=== PATIENT | male | born 1950 | race African-American/Black ===

== ENCOUNTER → 2016-07-31 | Outpatient (CLI) | payer MEDICARE, MEDICAID ==
[~2016-07-31] MED LIST: BENA20TA4 PO; CLOP75TA41 PO; CYANOCOBALAMIN (B-12) 1000 MCG/1 ML VIAL IM ONE; CYANOCOBALAMIN (B-12) 1000 MCG/1 ML VIAL ONE; GLIP-116 PO; METO-159 PO; NOR10T PO; SIMV-13 PO; WARF6TAB21 PO
[2016-07-31 10:15] VITALS: BP 126/80
[2016-07-31 12:10] LABS: Basophils # (auto) 0 uL; Basophils % (auto) 0.4 % (0.0-2.0); DEFINITIVE VIEW TRANSMISSION; Eosinophils # (auto) 0.1 uL; Eosinophils % (auto) 1.1 % (0.0-7.0); Hematocrit 30.8 % (41.0-53.0); Hemoglobin 9.6 g/dL (13.5-17.5); Lymphocytes # (auto) 0.9 uL; Lymphocytes % (auto) 12.1 % (10.0-50.0); Mean Corpuscular Hemoglobin 21.3 pg (28.0-32.0); Mean Corpuscular Hgb Conc. 31.1 g/dL (32.0-36.0); Mean Corpuscular Volume 68.4 fL (80.0-100.0); Monocytes # (auto) 0.6 uL; Monocytes % (auto) 8.1 % (0.0-12.0); Neutrophils # (auto) 5.9 uL; Neutrophils % (auto) 78.3 % (37.0-80.0); Platelet Count (auto) 243 10^3/uL (140-450); SUSPECT VIEW TRANSMISSION; White Blood Cell 7.5 10^3/uL (4.4-10.8)
[2016-07-31 12:39] LABS: Red Cell Distribution Width 20.4 % (11.6-16.0)
[2016-07-31 13:26] LABS: Platelet Estimate Adequate
[2016-07-31 13:27] LABS: Anisocytosis Moderate
[2016-07-31 13:28] LABS: Hypochromia Moderate; Schistocytes FEW
[2016-07-31 13:40] LABS: Albumin 3.7 g/dL (3.4-5.0); BUN/Creatinine Ratio 18.3; Bilirubin, Total 0.4 mg/dL (0.2-1.0); Calcium 8.7 mg/dL (8.5-10.1); Magnesium 2.4 mg/dL (1.6-2.6); Total Protein 7.5 g/dL (6.4-8.2)
== END | disposition home or self-care (01) ==
LOC: CHF HDHVI 09:34
PROVIDERS: ATTEND Internal Medicine Cardiovascular Disease
DX: I10 Essential (primary) hypertension (principal); E11.9 Type 2 diabetes mellitus without complications; E83.40 Disorders of magnesium metabolism, unspecified; D64.9 Anemia, unspecified
CPT/HCPCS: 36415; 80053; 83036; 83735; 85025; 93701; 96372; G0463

== ENCOUNTER → 2016-08-07 | Outpatient (CLI) | payer MEDICARE, MEDICAID ==
[2016-08-07 11:55] VITALS: BP 105/70
[2016-08-07 13:26] LABS: INR 2.5 (0.7-1.3)
== END | disposition home or self-care (01) ==
LOC: CHF HDHVI 11:10
PROVIDERS: ATTEND Internal Medicine Cardiovascular Disease
DX: I11.0 Hypertensive heart disease with heart failure (principal); I50.9 Heart failure, unspecified; E11.9 Type 2 diabetes mellitus without complications; D64.9 Anemia, unspecified
CPT/HCPCS: 85610; 96372; G0463; J3420

== ENCOUNTER → 2016-08-22 | Outpatient (CLI) | payer MEDICARE, MEDICAID ==
[~2016-08-22] VITALS: Ht 33 cm; Wt 0.5 kg
[2016-08-22 12:55] VITALS: BP 109/59
[2016-08-22 13:45] VITALS: BP 115/63
[2016-08-22 15:53] LABS: INR 2.7 (0.7-1.3); Prothrombin Time 32.1 sec (9.0-12.0)
[2016-08-22 17:00] LABS: Potassium 4.3 mmol/L (3.5-5.1)
[2016-08-22 17:05] LABS: Basophils # (auto) 0 uL; Basophils % (auto) 0.1 % (0.0-2.0); DEFINITIVE VIEW TRANSMISSION; Eosinophils # (auto) 0.1 uL; Eosinophils % (auto) 0.9 % (0.0-7.0); Hematocrit 32.6 % (41.0-53.0); Hemoglobin 10.1 g/dL (13.5-17.5); Lymphocytes # (auto) 1.5 uL; Lymphocytes % (auto) 16.9 % (10.0-50.0); Mean Corpuscular Hemoglobin 21.6 pg (28.0-32.0); Mean Corpuscular Hgb Conc. 31.2 g/dL (32.0-36.0); Mean Corpuscular Volume 69.3 fL (80.0-100.0); Mean Platelet Volume 10.6 fL (7.4-10.4); Monocytes # (auto) 0.9 uL; Monocytes % (auto) 10.1 % (0.0-12.0); Neutrophils # (auto) 6.4 uL; Platelet Count (auto) 242 10^3/uL (140-450); White Blood Cell 8.8 10^3/uL (4.4-10.8)
[2016-08-22 17:16] LABS: Red Cell Distribution Width 20.7 % (11.6-16.0)
[2016-08-22 18:07] LABS: Anisocytosis Moderate; Hypochromia Moderate; Platelet Estimate Adequate
[2016-08-22 18:08] LABS: Microcytosis Slight
== END | disposition home or self-care (01) ==
LOC: CHF HDHVI 12:59
PROVIDERS: ATTEND Internal Medicine Cardiovascular Disease
DX: I50.9 Heart failure, unspecified (principal); I10 Essential (primary) hypertension; D64.9 Anemia, unspecified; R94.4 Abnormal results of kidney function studies; E55.9 Vitamin D deficiency, unspecified
CPT/HCPCS: 36415; 82306; 82565; 82962; 84132; 84520; 85025; 85610; 96372; G0463

== ENCOUNTER → 2016-09-27 | Outpatient (CLI) | payer MEDICARE, MEDICAID ==
[2016-09-27 14:35] VITALS: BP 135/73
[2016-09-27 14:57] LABS: INR 1.1 (0.7-1.3); Prothrombin Time 13.6 sec (9.0-12.0)
[2016-09-27 15:25] VITALS: BP 128/82
== END | disposition home or self-care (01) ==
LOC: CHF HDHVI 14:38
PROVIDERS: ATTEND Internal Medicine Cardiovascular Disease
DX: I11.0 Hypertensive heart disease with heart failure (principal); I25.10 Atherosclerotic heart disease of native coronary artery without angina pectoris; I73.9 Peripheral vascular disease, unspecified; E11.9 Type 2 diabetes mellitus without complications; D51.9 Vitamin B12 deficiency anemia, unspecified; E78.5 Hyperlipidemia, unspecified; E55.9 Vitamin D deficiency, unspecified; Z95.1 Presence of aortocoronary bypass graft
CPT/HCPCS: 85610; 96372; G0463; J3420

== ENCOUNTER → 2018-04-03 | Outpatient (CLI) | payer MEDICARE, MEDICAID ==
[~2018-04-03] VITALS: Ht 185.4 cm; Wt 89.8 kg
[~2018-04-03] MED LIST changes: +ADENOSINE 75 MG in GIVE UN-DILUTED 0 ML IV ONE; +ADENOSINE 90 MG/30 ML INJ IV ONE; +BENA20TA14 PO; -BENA20TA4 PO; -CYANOCOBALAMIN (B-12) 1000 MCG/1 ML VIAL IM ONE; -CYANOCOBALAMIN (B-12) 1000 MCG/1 ML VIAL ONE
== END | disposition home or self-care (01) ==
LOC: Rad HDHVI 09:41
PROVIDERS: ATTEND Internal Medicine Cardiovascular Disease
DX: I42.0 Dilated cardiomyopathy (principal); I11.0 Hypertensive heart disease with heart failure; I50.23 Acute on chronic systolic (congestive) heart failure; E78.00 Pure hypercholesterolemia, unspecified; E11.9 Type 2 diabetes mellitus without complications; R19.09 Other intra-abdominal and pelvic swelling, mass and lump
CPT/HCPCS: 78452; 93005; 96374; 96375; A9500; J0153

== ENCOUNTER → 2018-04-04 | Outpatient (CLI) | payer MEDICARE, MEDICAID ==
[~2018-04-04] MED LIST changes: -ADENOSINE 75 MG in GIVE UN-DILUTED 0 ML IV ONE; -ADENOSINE 90 MG/30 ML INJ IV ONE
== END | disposition home or self-care (01) ==
LOC: Rad HDHVI 16:04
PROVIDERS: ATTEND Internal Medicine Cardiovascular Disease
DX: I42.0 Dilated cardiomyopathy (principal); I13.0 Hypertensive heart and chronic kidney disease with heart failure and stage 1 through stage 4 chronic kidney disease, or unspecified chronic kidney disease; E11.22 Type 2 diabetes mellitus with diabetic chronic kidney disease; I50.23 Acute on chronic systolic (congestive) heart failure; N18.2 Chronic kidney disease, stage 2 (mild)
CPT/HCPCS: 93306

== ENCOUNTER → 2018-04-07 | Outpatient (CLI) | payer MEDICARE, MEDICAID ==
[2018-04-07 16:17] LABS: Basophils # (auto) 0 uL; Basophils % (auto) 0.5 % (0.0-2.0); Eosinophils # (auto) 0.1 uL; Eosinophils % (auto) 1.6 % (0.0-7.0); Hemoglobin 11.4 g/dL (13.5-17.5); Lymphocytes # (auto) 1.6 uL; Monocytes # (auto) 0.7 uL; Nucleated Red Blood Cells % 0.4 %
[2018-04-07 16:21] LABS: Hematocrit 35.5 % (41.0-53.0); Lymphocytes % (auto) 23.4 % (10.0-50.0); Mean Corpuscular Hemoglobin 26.3 pg (28.0-32.0); Mean Corpuscular Hgb Conc. 32.1 g/dL (32.0-36.0); Mean Corpuscular Volume 81.9 fL (80.0-100.0); Neutrophils # (auto) 4.5 uL; Neutrophils % (auto) 64.5 % (37.0-80.0); Platelet Count (auto) 98 10^3/uL (140-450); Red Blood Cells 4.33 10^6/uL (4.5-5.90)
[2018-04-07 16:32] LABS: Partial Thromboplastin Time 26.5 sec (23.78-33.04); Potassium 3.6 mmol/L (3.5-5.1); Prothrombin Time 10.7 sec (9.27-12.13)
[2018-04-07 16:33] LABS: Red Cell Distribution Width 27.3 % (11.8-14.3)
[2018-04-07 16:37] LABS: BUN/Creatinine Ratio 25.9; Calcium 8.6 mg/dL (8.5-10.1)
== END | disposition home or self-care (01) ==
LOC: Rad HDHVI 12:03
PROVIDERS: ATTEND Internal Medicine Cardiovascular Disease
DX: Z01.818 Encounter for other preprocedural examination (principal); R06.02 Shortness of breath; D64.9 Anemia, unspecified; R79.1 Abnormal coagulation profile; I10 Essential (primary) hypertension
CPT/HCPCS: 36415; 71046; 80048; 85025; 85610; 85730

== ENCOUNTER → 2018-04-10 | Outpatient (CLI) | payer MEDICARE, MEDICAID ==
[2018-04-10 12:10] LABS: Urine Blood Negative /uL (Negative); Urine Specific Gravity 1.023 (1.001-1.035)
== END | disposition home or self-care (01) ==
LOC: LAB 07:54
PROVIDERS: ATTEND Internal Medicine Cardiovascular Disease
DX: N39.0 Urinary tract infection, site not specified (principal)
CPT/HCPCS: 81003; 87086

== ENCOUNTER → 2019-01-12 | Outpatient (CLI) | payer MEDICARE, MEDICAID ==
[~2019-01-12] MED LIST changes: -GLIP-116 PO; +GLIP10TA9 PO
--- NOTE | 2019-01-12 13:50 | NUR ---
CHF PT ARRIVED TO THE CHF CLINIC TO RESUME CHF FOLLOW UP CARE. NOT SEEN SINCE 2017 . PT A/O X 3 VSS, WOUND VAC TO THE LEFT FOOT CHRONIC DM ULCER.
[2019-01-12 14:42] VITALS: BP 121/70
--- NOTE | 2019-01-12 14:42 | NUR ---
Discharge Instructions See e-MAR for any mediations given with this visit. Patient education given on disease process. Patient verbalized understanding. Previous labs reviewed. Patient discharged in stable condition with after care instructions and follow up appointment. CARDIODYNAMIC AND CHEST XRAY COMPLETE Addendum: 01/12/19 at 1708 by J CARLOS OTT RN RN [place] FOLLOW UP IN 1 WEEK
[2019-01-12 15:52] LABS: Basophils # (auto) 0 uL; Eosinophils # (auto) 0.1 uL; Neutrophils # (auto) 3.1 uL; Platelet Count (auto) 169 10^3/uL (140-450)
[2019-01-12 15:55] LABS: Basophils % (auto) 0.4 % (0.0-2.0); Eosinophils % (auto) 1.9 % (0.0-7.0); Hemoglobin 9.2 g/dL (13.5-17.5); Lymphocytes # (auto) 1.6 uL; Lymphocytes % (auto) 30.4 % (10.0-50.0); Mean Corpuscular Hemoglobin 24.7 pg (28.0-32.0); Mean Corpuscular Hgb Conc. 30.5 g/dL (32.0-36.0); Monocytes # (auto) 0.5 uL; Monocytes % (auto) 9.4 % (0.0-12.0); Neutrophils % (auto) 57.9 % (37.0-80.0); Nucleated Red Blood Cells % 0.2 %; White Blood Cell 5.4 10^3/uL (4.4-10.8)
[2019-01-12 16:03] LABS: BUN/Creatinine Ratio 19.7; Calcium 8.3 mg/dL (8.5-10.1); Magnesium 2.3 mg/dL (1.6-2.6); Potassium 3.7 mmol/L (3.5-5.1)
[2019-01-12 16:12] LABS: Red Cell Distribution Width 32.2 % (11.8-14.3)
== END | disposition home or self-care (01) ==
LOC: CHF HDHVI 13:52
PROVIDERS: ATTEND Internal Medicine Cardiovascular Disease
DX: I11.0 Hypertensive heart disease with heart failure (principal); I50.9 Heart failure, unspecified; E83.40 Disorders of magnesium metabolism, unspecified; D64.9 Anemia, unspecified
CPT/HCPCS: 36415; 71046; 80048; 83735; 83880; 85025; 93701; G0463

== ENCOUNTER → 2019-01-21 | Outpatient (CLI) | payer MEDICARE, MEDICAID | END | disposition home or self-care (01) | LOC: Rad HDHVI 09:48 | PROVIDERS: ATTEND Internal Medicine Cardiovascular Disease | DX: I70.201 Unspecified atherosclerosis of native arteries of extremities, right leg (principal); R10.9 Unspecified abdominal pain | CPT/HCPCS: 93926 ==

== ENCOUNTER → 2019-01-30 | Outpatient (CLI) | payer MEDICARE, MEDICAID ==
[~2019-01-30] VITALS: Ht 185.4 cm; Wt 87.5 kg
[~2019-01-30] MED LIST changes: +ADENOSINE 74 MG in GIVE UN-DILUTED 0 ML IV ONE; +ADENOSINE 90 MG/30 ML INJ IV ONE
== END | disposition home or self-care (01) ==
LOC: Rad HDHVI 08:13
PROVIDERS: ATTEND Internal Medicine Cardiovascular Disease
DX: R07.9 Chest pain, unspecified (principal); I11.0 Hypertensive heart disease with heart failure; I50.9 Heart failure, unspecified; I21.9 Acute myocardial infarction, unspecified; E78.00 Pure hypercholesterolemia, unspecified; I25.10 Atherosclerotic heart disease of native coronary artery without angina pectoris; F17.200 Nicotine dependence, unspecified, uncomplicated; Z95.1 Presence of aortocoronary bypass graft
CPT/HCPCS: 78452; 93005; 96374; 96375; A9500; J0153

== ENCOUNTER → 2019-02-02 | Outpatient (CLI) | payer MEDICARE, MEDICAID ==
[~2019-02-02] MED LIST changes: -ADENOSINE 74 MG in GIVE UN-DILUTED 0 ML IV ONE; -ADENOSINE 90 MG/30 ML INJ IV ONE
[2019-02-02 12:30] VITALS: BP 137/54
[2019-02-02 13:00] VITALS: BP 124/64
--- NOTE | 2019-02-02 13:00 | NUR ---
IN FOR CHF FOLLOWUP WITH IN ATTENDANCE. VS WNL. REVIEWED LABS AND STATUS. WRITTEN AND VERBAL INSTRUCTION ON ADDING HIGH POTASSIUM FOODS TO DIET. VERBAL INSTRUCTION AND DEMONSTRATION ON ADDING VITAMIN D SPRAY TO DAILY REGIMEN. REPEAT BACK INSTRUCTIONS OBTAINED. INR CHECKED DUE TO PATIENTS STATING ON BLOOD THINNERS. DISCHARGED TO SELF CARE IN NO DISTRESS WITH IN ATTENDANCE.
== END | disposition home or self-care (01) ==
LOC: CHF HDHVI 13:07
PROVIDERS: ATTEND Internal Medicine Cardiovascular Disease
DX: I13.0 Hypertensive heart and chronic kidney disease with heart failure and stage 1 through stage 4 chronic kidney disease, or unspecified chronic kidney disease (principal); E11.22 Type 2 diabetes mellitus with diabetic chronic kidney disease; I50.9 Heart failure, unspecified; N18.9 Chronic kidney disease, unspecified; E55.9 Vitamin D deficiency, unspecified; L97.509 Non-pressure chronic ulcer of other part of unspecified foot with unspecified severity; R03.0 Elevated blood-pressure reading, without diagnosis of hypertension
CPT/HCPCS: 85610; G0463

== ENCOUNTER → 2019-03-04 | Outpatient (CLI) | payer MEDICARE, MEDICAID ==
[~2019-03-04] MED LIST changes: +CYANOCOBALAMIN (B-12) 1000 MCG/1 ML VIAL IM ONE; +CYANOCOBALAMIN (B-12) 1000 MCG/1 ML VIAL ONE
[2019-03-04 12:59] VITALS: BP 107/71
[2019-03-04 13:35] VITALS: BP 127/66
--- NOTE | 2019-03-04 13:35 | NUR ---
IN TO CLINIC WITH FAMILY IN ATTENDANCE. LABS REVIEWED. ADDITIONAL LABS DRAWN AND SENT. ADMINISTERED MEDICATION PER ORDER. MEDICATION ADMINISTRATION VIT B12 1000 MCG IM TO LEFT DELTOID AT 1335
[2019-03-04 16:12] LABS: Albumin 3.7 g/dL (3.4-5.0); Calcium 8.6 mg/dL (8.5-10.1); Magnesium 2.3 mg/dL (1.6-2.6); Potassium 3.6 mmol/L (3.5-5.1)
[2019-03-04 16:13] LABS: Basophils # (auto) 0 uL; Basophils % (auto) 0.3 % (0.0-2.0); Eosinophils # (auto) 0.1 uL; Eosinophils % (auto) 2.4 % (0.0-7.0); Hematocrit 36.9 % (41.0-53.0); Hemoglobin 11.9 g/dL (13.5-17.5); Lymphocytes # (auto) 0.8 uL; Lymphocytes % (auto) 14.1 % (10.0-50.0); Mean Corpuscular Hemoglobin 29.5 pg (28.0-32.0); Mean Corpuscular Hgb Conc. 32.2 g/dL (32.0-36.0); Mean Corpuscular Volume 91.5 fL (80.0-100.0); Monocytes # (auto) 0.6 uL; Monocytes % (auto) 10.8 % (0.0-12.0); Neutrophils # (auto) 3.9 uL; Neutrophils % (auto) 72.4 % (37.0-80.0); Nucleated Red Blood Cells % 0.1 %; Platelet Count (auto) 119 10^3/uL (140-450); Red Blood Cells 4.04 10^6/uL (4.5-5.90); White Blood Cell 5.3 10^3/uL (4.4-10.8)
[2019-03-04 16:14] LABS: BUN/Creatinine Ratio 21.3
[2019-03-04 16:16] LABS: Bilirubin, Total 0.3 mg/dL (0.2-1.0); Total Protein 7.3 g/dL (6.4-8.2)
[2019-03-04 16:28] LABS: Red Cell Distribution Width 21.6 % (11.8-14.3)
== END | disposition home or self-care (01) ==
LOC: CHF HDHVI 13:05
PROVIDERS: ATTEND Internal Medicine Cardiovascular Disease
DX: I13.0 Hypertensive heart and chronic kidney disease with heart failure and stage 1 through stage 4 chronic kidney disease, or unspecified chronic kidney disease (principal); E11.22 Type 2 diabetes mellitus with diabetic chronic kidney disease; N18.9 Chronic kidney disease, unspecified; I50.22 Chronic systolic (congestive) heart failure; I25.10 Atherosclerotic heart disease of native coronary artery without angina pectoris; I48.91 Unspecified atrial fibrillation; E83.40 Disorders of magnesium metabolism, unspecified; E78.00 Pure hypercholesterolemia, unspecified; D64.9 Anemia, unspecified; R53.83 Other fatigue; Z87.891 Personal history of nicotine dependence; Z95.1 Presence of aortocoronary bypass graft
CPT/HCPCS: 36415; 80053; 83735; 83880; 85025; 93701; 96372; G0463; J3420

== ENCOUNTER → 2019-03-06 | Outpatient (CLI) | payer MEDICARE, MEDICAID ==
[~2019-03-06] MED LIST changes: +ASPI325T4 PO; +CLOP75TA28 PO; -CYANOCOBALAMIN (B-12) 1000 MCG/1 ML VIAL IM ONE; -CYANOCOBALAMIN (B-12) 1000 MCG/1 ML VIAL ONE; +DIPH25CA6 PO; +FERR-20 PO; +HYDR-392 PO; +HYDR25TA4 PO; +LISI-275 PO; +METO25TA5 PO
[2019-03-06 17:32] LABS: Potassium 3.7 mmol/L (3.5-5.1)
== END | disposition home or self-care (01) ==
LOC: CHF HDHVI 13:48
PROVIDERS: ATTEND Internal Medicine Cardiovascular Disease
DX: E87.6 Hypokalemia (principal); R94.4 Abnormal results of kidney function studies; I13.0 Hypertensive heart and chronic kidney disease with heart failure and stage 1 through stage 4 chronic kidney disease, or unspecified chronic kidney disease; E11.22 Type 2 diabetes mellitus with diabetic chronic kidney disease; I50.9 Heart failure, unspecified; N18.9 Chronic kidney disease, unspecified
CPT/HCPCS: 36415; 82565; 84132; 84520

== ENCOUNTER → 2019-03-10 | Outpatient (CLI) | payer MEDICARE, MEDICAID ==
[~2019-03-10] MED LIST changes: -ASPI325T4 PO; -CLOP75TA28 PO; -DIPH25CA6 PO; -FERR-20 PO; -HYDR-392 PO; -HYDR25TA4 PO; -LISI-275 PO; -METO25TA5 PO
[2019-03-10 12:00] VITALS: BP 131/78
[2019-03-10 13:00] VITALS: BP 117/69
--- NOTE | 2019-03-10 13:00 | NUR ---
IN TO CLINIC FOR CHF FOLLOWUP AND REPEAT LABS. PT HAS HAD INCREASED CREATININE WITH REPEAT LEVELS DRAWN. MEDICATION RECONCILIATION DONE AND VERIFIED WITH PATIENT AND PATIENTS . PT REPORTS DRINKING PLENTY OF FLUID AND REPORTS COMPLIANCE WITH MEDICATION REGIMEN. NO CHANGES. DENIES TAKING ANY ADDITIONAL HERBALS. LABS DRAWN AND SENT. WILL VERIFY REPEAT RESULTS AND FOLLOW WITH DR MARLEY . PT TO RTC IN 1 WEEK.
[2019-03-10 16:16] LABS: Potassium 4.2 mmol/L (3.5-5.1)
== END | disposition home or self-care (01) ==
LOC: CHF HDHVI 11:32
PROVIDERS: ATTEND Internal Medicine Cardiovascular Disease
DX: R94.4 Abnormal results of kidney function studies (principal); E87.6 Hypokalemia; I13.0 Hypertensive heart and chronic kidney disease with heart failure and stage 1 through stage 4 chronic kidney disease, or unspecified chronic kidney disease; E11.22 Type 2 diabetes mellitus with diabetic chronic kidney disease; I50.9 Heart failure, unspecified; N18.9 Chronic kidney disease, unspecified
CPT/HCPCS: 36415; 82565; 84132; 84520; G0463

== ENCOUNTER → 2019-03-31 | Outpatient (CLI) | payer MEDICARE, MEDICAID ==
[~2019-03-31] MED LIST changes: +ASPI325T4 PO; +CLOP75TA28 PO; +DIPH25CA6 PO; +FERR-20 PO; +HYDR-392 PO; +HYDR25TA4 PO; +LISI-275 PO; +METO25TA5 PO
[2019-03-31 09:20] VITALS: BP 146/85
[2019-03-31 09:34] VITALS: BP 149/83
--- NOTE | 2019-03-31 09:34 | NUR ---
Pre-Op Discharge Summary: See e-MAR for any medications given for this visit. Pre-op orders received and carried out per MD of EKG, LABS and chest xrays. Patient given a copy of EKG with instructions to go to [facility] out patient for further follow up care.
[2019-03-31 12:07] LABS: Basophils # (auto) 0.1 uL; Basophils % (auto) 0.9 % (0.0-2.0); Eosinophils # (auto) 0.2 uL; Eosinophils % (auto) 2.8 % (0.0-7.0); Hematocrit 42.7 % (41.0-53.0); Hemoglobin 13.8 g/dL (13.5-17.5); Lymphocytes % (auto) 13.2 % (10.0-50.0); Mean Corpuscular Hemoglobin 30.2 pg (28.0-32.0); Mean Corpuscular Hgb Conc. 32.3 g/dL (32.0-36.0); Mean Corpuscular Volume 93.6 fL (80.0-100.0); Monocytes # (auto) 0.8 uL; Monocytes % (auto) 10.5 % (0.0-12.0); Neutrophils # (auto) 5.3 uL; Neutrophils % (auto) 72.6 % (37.0-80.0); Platelet Count (auto) 137 10^3/uL (140-450); Red Blood Cells 4.56 10^6/uL (4.5-5.90); Red Cell Distribution Width 14.4 % (11.8-14.3); White Blood Cell 7.3 10^3/uL (4.4-10.8)
[2019-03-31 12:21] LABS: INR 0.97 (0.9-1.15); Partial Thromboplastin Time 28.5 sec (23.64-32.05)
[2019-03-31 12:41] LABS: BUN/Creatinine Ratio 22.6; Calcium 9.2 mg/dL (8.5-10.1); Potassium 4.2 mmol/L (3.5-5.1)
== END | disposition home or self-care (01) ==
LOC: Rad HDHVI 09:08
PROVIDERS: ATTEND Internal Medicine Cardiovascular Disease
DX: Z01.812 Encounter for preprocedural laboratory examination (principal); I42.9 Cardiomyopathy, unspecified; F17.200 Nicotine dependence, unspecified, uncomplicated; J44.9 Chronic obstructive pulmonary disease, unspecified; I50.9 Heart failure, unspecified; I13.0 Hypertensive heart and chronic kidney disease with heart failure and stage 1 through stage 4 chronic kidney disease, or unspecified chronic kidney disease; E11.22 Type 2 diabetes mellitus with diabetic chronic kidney disease; N18.9 Chronic kidney disease, unspecified; Z95.811 Presence of heart assist device
CPT/HCPCS: 36415; 71046; 80048; 85025; 85610; 85730; 93005; G0463

== ENCOUNTER 2019-04-02 08:59 | Day surgery (SDC) | payer MEDICARE, MEDICAID ==
[~2019-04-02] VITALS: Ht 185.4 cm; Wt 88.0 kg
[~2019-04-02 08:59] MED LIST changes: -BENA20TA14 PO; -CLOP75TA41 PO; -METO-159 PO; -NOR10T PO; -WARF6TAB21 PO
[2019-04-02] MEDS ORDERED: fentaNYL CITRATE 100 MCG/2 ML VL ONE (13:07)
[2019-04-02] MEDS ORDERED: ANGIOMAX 250 MG VIAL IV ONE (13:07)
[2019-04-02] MEDS ORDERED: SODIUM CHL 0.9% 0 ML ONE (13:07)
[2019-04-02] MEDS ORDERED: MIDAZOLAM HCL 1MG/1ML-2 ML VIAL ONE (13:07)
[2019-04-02] MEDS ORDERED: LIDOCAINE 2%HCL (LOCAL ANESTH.) INJ 20ML MDV ONE (13:11)
[2019-04-02] MEDS ORDERED: IOHEXOL 350 MG/ML 100ML IJ ONE (13:11)
== END 2019-04-02 15:53 | disposition home or self-care (01) ==
LOC: CATH 08:59
PROVIDERS: ATTEND Internal Medicine Cardiovascular Disease
DX: I73.9 Peripheral vascular disease, unspecified (principal); I10 Essential (primary) hypertension; I25.10 Atherosclerotic heart disease of native coronary artery without angina pectoris; I25.2 Old myocardial infarction; E11.9 Type 2 diabetes mellitus without complications; E78.00 Pure hypercholesterolemia, unspecified; J44.9 Chronic obstructive pulmonary disease, unspecified; F17.210 Nicotine dependence, cigarettes, uncomplicated; Z79.899 Other long term (current) drug therapy; Z95.1 Presence of aortocoronary bypass graft; Z95.5 Presence of coronary angioplasty implant and graft; Z95.0 Presence of cardiac pacemaker; Z79.84 Long term (current) use of oral hypoglycemic drugs; Z85.828 Personal history of other malignant neoplasm of skin
CPT/HCPCS: 36246; 75716; 99152; C1760; C1769; C1894; J1644; J2250; J3010; Q9967

== ENCOUNTER → 2019-04-27 | Outpatient (CLI) | payer MEDICARE, MEDICAID ==
[~2019-04-27] MED LIST changes: +METO-169 PO; +PANT40TA2 PO
[2019-04-27 10:11] VITALS: BP 136/81
--- NOTE | 2019-04-27 10:15 | NUR ---
Pre-Op Discharge Summary: See e-MAR for any medications given for this visit. Pre-op orders received and carried out per MD of EKG, LABS and chest xrays. Patient given a copy of EKG with instructions to go to [facility] out patient for further follow up care.
[2019-04-27 10:30] VITALS: BP 134/74
[2019-04-27 11:46] LABS: Basophils # (auto) 0 uL; Basophils % (auto) 0.5 % (0.0-2.0); Eosinophils # (auto) 0.2 uL; Eosinophils % (auto) 2.7 % (0.0-7.0); Hematocrit 39.4 % (41.0-53.0); Lymphocytes % (auto) 14.5 % (10.0-50.0); Mean Corpuscular Volume 94.2 fL (80.0-100.0); Monocytes # (auto) 0.7 uL; Monocytes % (auto) 10.9 % (0.0-12.0); Neutrophils # (auto) 4.9 uL; Neutrophils % (auto) 71.4 % (37.0-80.0); Platelet Count (auto) 114 10^3/uL (140-450); Red Blood Cells 4.19 10^6/uL (4.5-5.90); Red Cell Distribution Width 14.4 % (11.8-14.3); White Blood Cell 6.8 10^3/uL (4.4-10.8)
[2019-04-27 12:04] LABS: Potassium 3.8 mmol/L (3.5-5.1)
[2019-04-27 12:08] LABS: INR 1.06 (0.9-1.15); Partial Thromboplastin Time 28.5 sec (23.64-32.05)
[2019-04-27 12:23] LABS: BUN/Creatinine Ratio 22.7; Calcium 8.8 mg/dL (8.5-10.1)
== END | disposition home or self-care (01) ==
LOC: Rad HDHVI 09:48
PROVIDERS: ATTEND Internal Medicine Cardiovascular Disease
DX: Z01.812 Encounter for preprocedural laboratory examination (principal); J92.9 Pleural plaque without asbestos; I11.0 Hypertensive heart disease with heart failure; I50.9 Heart failure, unspecified; M47.814 Spondylosis without myelopathy or radiculopathy, thoracic region; R05 Cough; Z87.891 Personal history of nicotine dependence
CPT/HCPCS: 36415; 71046; 80048; 85025; 85610; 85730; 93005; G0463

== ENCOUNTER 2019-04-30 15:26 | Inpatient (IN) | payer MEDICARE, MEDICAID ==
[~2019-04-30] VITALS: Ht 185.4 cm; Wt 88.9 kg
[~2019-04-30 15:26] MED LIST changes: +ANGIOMAX 250 MG VIAL IV ONE; +DEXTROSE (50%) 50ML SYRG IV PRN; -HYDR25TA4 PO; +HYDROcodone-ACET 7.5/325MG TAB PO PRN; +HYDROmorphone HCL 2 MG/ML VL ONE; +IODIXANOL 320MG/ML 100ML BTL IV ONE; +IOHEXOL 350 MG/ML 100ML IJ ONE; +LIDOCAINE 2%HCL (LOCAL ANESTH.) INJ 20ML MDV ONE; -METO25TA5 PO; +MIDAZOLAM HCL 1MG/1ML-2 ML VIAL ONE; +MORPHINE SULF INJ 2 MG/ML SYRINGE 1ML IV PRN; +NITROGLYCERIN 0.4 MG SL TAB SL PRN; +SODIUM CHL 0.9% 50 ML ONE; +SODIUM CHL 0.9% 500 ML IV ONE; +diphenhdrAMINE HCL 25 MG CAP PO PRN; +fentaNYL CITRATE 100 MCG/2 ML VL ONE
[2019-04-30 16:00] VITALS: BP 134/85
--- NOTE | 2019-04-30 16:00 | NUR ---
M/S Admit from Facilities Technician Report received from Corinna NIXON. JEISON PEREZ brought to bed 273b following peripheral Cardiac catheterization. Patient transferred to unit bed. Catheterization site assessed for any bleeding, redness or swelling. Left groin dressing clean, dry, and intact. Patient instructed on need to notify staff immediately if any pain, burning or wetness to site, and any lower back pain. Patient instructed to lie flat until 1630, patient verbalized understanding. Bed locked in lowest position, side rails up x2, call light within reach. Will continue to monitor q1hr and PRN for any changes.
--- NOTE | 2019-04-30 16:30 | NUR ---
Patient okay to sit at 30 degree angle at this time. Patients groin assessed no signs of bleeding or swelling noted, dressing is dry and intact. Patient was repositioned to [facility]. No distress noted. Will continue to monitor.
[2019-04-30 17:00] VITALS: BP 134/85
[2019-04-30] MEDS: glipiZIDE 5 MG TAB PO SCH (17:34)
[2019-04-30] MEDS: InsuLIN REG 1unit/0.01ml Soln (100units/ml) SC SCH ×2 (17:34→22:00)
[2019-04-30] MEDS: ACCU-CHEK COMFORT CURVE STRIP VI SCH ×2 (17:35→22:25)
--- NOTE | 2019-04-30 19:02 | NUR ---
Patient Rounds Patient resting in bed watching television. No s/s of distress. Will endorse care to night club manager RN.
[2019-04-30 20:00] VITALS: BP 117/74
--- NOTE | 2019-04-30 20:00 | NUR ---
Opening Shift Note Assumed care of patient, awake and alert. No S/S of distress/SOB or pain. Instructed on POC and to call for assist PRN, will continue to monitor for changes Q1hr and PRN. Incision dry and intact.
[2019-04-30 21:49] VITALS: BP 117/74
[2019-04-30] MEDS ORDERED: ATORVASTATIN 20 MG TAB PO SCH (22:00)
[2019-05-01 04:59] VITALS: BP 104/47
[2019-05-01] MEDS: glipiZIDE 5 MG TAB PO SCH (06:17)
[2019-05-01] MEDS: InsuLIN REG 1unit/0.01ml Soln (100units/ml) SC SCH ×2 (06:18→11:20)
[2019-05-01] MEDS: ACCU-CHEK COMFORT CURVE STRIP VI SCH ×2 (06:18→11:20)
--- NOTE | 2019-05-01 07:30 | NUR ---
Opening Shift Note Assumed care of patient, awake, alert, and oriented. No S/S of distress/SOB or pain. Bed in lowest/locked position, bed rails up x2, call light within reach. Instructed on POC and to call for assist PRN. Will continue to monitor for changes Q1hr and PRN.
[2019-05-01 09:41] VITALS: BP 102/87
[2019-05-01 09:45] VITALS: BP 116/69
[2019-05-01] MEDS ORDERED: CLOPIDOGREL BISULFATE 75 MG TAB PO SCH (10:00)
[2019-05-01] MEDS ORDERED: PANTOPRAZOLE 40 MG TAB PO SCH (10:00)
[2019-05-01] MEDS ORDERED: ASPirin-EC 81 mg tab PO SCH (10:00)
[2019-05-01] MEDS ORDERED: FERROUS SULFATE 325 MG TAB PO SCH (10:00)
[2019-05-01] MEDS ORDERED: METOPROLOL SUCCINATE XL 50 MG TAB PO SCH (10:00)
[2019-05-01] MEDS ORDERED: LISINOPRIL 5 MG TAB PO SCH (10:00)
[2019-05-01 12:30] VITALS: BP 103/65
--- NOTE | 2019-05-01 12:43 | NUR ---
WOUND CARE NOTE: Wound care in to see patient per wound care request regarding "Left foot wound.." that are noted present on admission. Bedside nurse took photograph of patient's wound upon admission for reference. Patient is 68 years old male with admitting diagnosis of PVD. He's with history of CAD, CHF, CKF, COPD, DM, High Lipids, Htn. Patient is resting in bed in Rm. 273B. He's awake, alert and oriented. He's in no stated pain at this time. Patient's at bedside.Patient is self turn and reposition and his Kt score is 21. Noted patient's L medial great toes has 2x1.8cm dry, blood blister,no drainage/odor noted,left open to air. He has open ulceration to L heel measuring 2x1.2x0.8cm. Wound is red with pink collagen scar tissue to gloria wound , scant serosanguineous drainage noted, no odor noted. Patient's at bedside reported that patient is under the care of Dr. Garland for his L heel wound and recommending Daily packing to left heel wound. Cleansed patient's L heel wound with wound cleanser, patted dry with gauze, fill wound cavity with 1/4 inch iodoform packing strips,leaving an inch tail, padded with layer of gauze, wrapped with Kerlix and secured with tape. No pressure injury noted. Patient tolerated well. Patient and family wound care education provided, verbalized understanding. New photograph of patient's L heel and L great toe wounds are taken for reference. RECOMMENDATION: Daily/PRN dressing change to L heel wound per MD order, offload heels on pillows, continue monitoring by wound care while patient is hospitalized. Addendum: 05/01/19 at 1613 by Jazzy Olsen RN Amended: Links added.
--- NOTE | 2019-05-01 16:30 | NUR ---
Discharge instructions given as ordered. Encourage to follow up with PMD as instructed. All questions and concerns addressed. Patient verbalized understanding. IV removed with catheter intact, pressure dressing applied. Patient taken to vehicle via wheelchair with all personal belongings, accompanied by staff and family member. No distress noted at time of departure.
--- NOTE | 2019-05-01 17:36 | NUR ---
Discharge planning per consult, Dr. Newton wrote orders for patient to do home health with [facility] [phone]. Referral faxed as per ordered by Dr. Newton. Placed a follow up call, spoke with [facility] and was advised that they will accept this patient onto services and start of care will be within 24-48 hours upon discharge. Addendum: 05/01/19 at 1743 by AIMEE COOLEY Amended: Links added.
== END 2019-05-01 16:30 | disposition home health service (06) | DRG 181 ==
LOC: CATH 15:26 → TELE-WESTW 16:02 → WEST WING 19:16
PROVIDERS: ADMIT Internal Medicine Cardiovascular Disease; ATTEND Internal Medicine Cardiovascular Disease
PROC: B41G1ZZ Fluoroscopy of Left Lower Extremity Arteries using Low Osmolar Contrast (ICD-10-PCS; principal; 2019-04-30)
PROC: 047K3Z1 Dilation of Right Femoral Artery using Drug-Coated Balloon, Percutaneous Approach (ICD-10-PCS; 2019-04-30)
PROC: 04CK3ZZ Extirpation of Matter from Right Femoral Artery, Percutaneous Approach (ICD-10-PCS; 2019-04-30)
PROC: B41F1ZZ Fluoroscopy of Right Lower Extremity Arteries using Low Osmolar Contrast (ICD-10-PCS; 2019-04-30)
PROC: 047T3ZZ Dilation of Right Peroneal Artery, Percutaneous Approach (ICD-10-PCS; 2019-04-30)
PROC: 047M3ZZ Dilation of Right Popliteal Artery, Percutaneous Approach (ICD-10-PCS; 2019-04-30)
DX: E11.51 Type 2 diabetes mellitus with diabetic peripheral angiopathy without gangrene (principal); J44.9 Chronic obstructive pulmonary disease, unspecified; E78.5 Hyperlipidemia, unspecified; I70.211 Atherosclerosis of native arteries of extremities with intermittent claudication, right leg; I25.10 Atherosclerotic heart disease of native coronary artery without angina pectoris; I10 Essential (primary) hypertension; Z82.49 Family history of ischemic heart disease and other diseases of the circulatory system; Z95.1 Presence of aortocoronary bypass graft; Z79.899 Other long term (current) drug therapy
CPT/HCPCS: 36415; 37227; 37228; 75716; 82565; 82962; 99152; 99153; C1769; G0378; J2250; Q9967

== ENCOUNTER → 2020-09-15 | Outpatient (CLI) | payer MEDICARE, MEDICAID ==
[~2020-09-15] MED LIST changes: -ANGIOMAX 250 MG VIAL IV ONE; +CYANOCOBALAMIN (B-12) 1000 MCG/1 ML VIAL IM ONE; +CYANOCOBALAMIN (B-12) 1000 MCG/1 ML VIAL ONE; -DEXTROSE (50%) 50ML SYRG IV PRN; -HYDROcodone-ACET 7.5/325MG TAB PO PRN; -HYDROmorphone HCL 2 MG/ML VL ONE; -IODIXANOL 320MG/ML 100ML BTL IV ONE; -IOHEXOL 350 MG/ML 100ML IJ ONE; -LIDOCAINE 2%HCL (LOCAL ANESTH.) INJ 20ML MDV ONE; -MIDAZOLAM HCL 1MG/1ML-2 ML VIAL ONE; -MORPHINE SULF INJ 2 MG/ML SYRINGE 1ML IV PRN; -NITROGLYCERIN 0.4 MG SL TAB SL PRN; -SODIUM CHL 0.9% 50 ML ONE; -SODIUM CHL 0.9% 500 ML IV ONE; -diphenhdrAMINE HCL 25 MG CAP PO PRN; -fentaNYL CITRATE 100 MCG/2 ML VL ONE
[2020-09-15 11:25] VITALS: BP 135/69
[2020-09-15 15:47] LABS: Basophils # (auto) 0.1 10 ^3/uL (0-0.2); Basophils % (auto) 0.9 % (0.0-2.0); Eosinophils # (auto) 0.1 10 ^3/uL (0-0.8); Eosinophils % (auto) 2.3 % (0.0-7.0); Hematocrit 41.2 % (41.0-53.0); Hemoglobin 13.3 g/dL (13.5-17.5); Lymphocytes # (auto) 0.7 10 ^3/uL (0.4-5.4); Lymphocytes % (auto) 12.9 % (10.0-50.0); Mean Corpuscular Hemoglobin 29.2 pg (28.0-32.0); Mean Corpuscular Hgb Conc. 32.2 g/dL (32.0-36.0); Mean Corpuscular Volume 90.6 fL (80.0-100.0); Monocytes # (auto) 0.5 10 ^3/uL (0-1.3); Monocytes % (auto) 8.4 % (0.0-12.0); Neutrophils # (auto) 4.3 10 ^3/uL (1.6-8.6); Neutrophils % (auto) 75.5 % (37.0-80.0); Nucleated Red Blood Cells % 0.2 %; Platelet Count (auto) 138 10^3/uL (140-450); Red Blood Cells 4.54 10^6/uL (4.5-5.90); White Blood Cell 5.7 10^3/uL (4.4-10.8)
[2020-09-15 15:56] LABS: Albumin 3.9 g/dL (3.4-5.0); BUN/Creatinine Ratio 16.2; Calcium 9.2 mg/dL (8.5-10.1); Magnesium 2.1 mg/dL (1.6-2.6); Potassium 4.2 mmol/L (3.5-5.1)
[2020-09-15 15:59] LABS: Bilirubin, Total 0.3 mg/dL (0.2-1.0); Total Protein 7.9 g/dL (6.4-8.2)
== END | disposition home or self-care (01) ==
LOC: CHF HDHVI 10:59
PROVIDERS: ATTEND Internal Medicine Cardiovascular Disease
DX: I12.9 Hypertensive chronic kidney disease with stage 1 through stage 4 chronic kidney disease, or unspecified chronic kidney disease (principal); I50.23 Acute on chronic systolic (congestive) heart failure; R53.83 Other fatigue; E11.9 Type 2 diabetes mellitus without complications; Z79.899 Other long term (current) drug therapy
CPT/HCPCS: 36415; 80053; 82306; 82607; 83036; 83735; 83880; 84403; 85025; 96372; G0463; J3420

== ENCOUNTER → 2020-09-28 | Outpatient (CLI) | payer MEDICARE, MEDICAID ==
[~2020-09-28] MED LIST changes: -CYANOCOBALAMIN (B-12) 1000 MCG/1 ML VIAL IM ONE; -CYANOCOBALAMIN (B-12) 1000 MCG/1 ML VIAL ONE; -METO-169 PO; +METO-289 PO
== END | disposition home or self-care (01) ==
LOC: Rad HDHVI 11:53
PROVIDERS: ATTEND Internal Medicine Cardiovascular Disease
DX: R06.02 Shortness of breath (principal); Z95.810 Presence of automatic (implantable) cardiac defibrillator
CPT/HCPCS: 71046

== ENCOUNTER → 2020-10-03 | Outpatient (CLI) | payer MEDICARE, MEDICAID | END | disposition home or self-care (01) | LOC: Rad HDHVI 15:56 | PROVIDERS: ATTEND Internal Medicine Cardiovascular Disease | DX: R07.89 Other chest pain (principal); R06.02 Shortness of breath | CPT/HCPCS: 93306 ==